=== PATIENT | female | born 1950 | race Caucasian/White ===

== ENCOUNTER 2016-12-27 08:04 | Observation (INO) | payer MEDICARE, OTHER ==
--- NOTE | ~2016-12-27 | OP ---
Record Of Operation [facility] [address] [place]. [address] NAME: COLBY JARVIS : 46 STATUS : DIS IN PAT#: [id number] AGE: 66 ADM/REG DATE : 12/27/16 MR#: [id number] REPORT SERV DATE: 12/29/16 DICTATED BY: JEAN CLAUDE CAPUTO DATE: 12/28/16 REPORT STATUS : Draft TRANSCRIBED BY: MODCruz DATE: 12/28/16 DATE OF PROCEDURE: 12/27/2016 PREOPERATIVE DIAGNOSIS: Surgical absence of the left breast, status post partial mastectomy, breast hypertrophy. PROCEDURE: Oncoplastic reconstruction of the left breast and reduction for matching on the right. 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 She is appropriate for completion of her central segmentectomy incorporating this into a breast reduction and a matching reduction on the right. DETAILS OF THE PROCEDURE: The patient was brought to the operating room after being marked in the preoperative holding area. She was prepped and draped in the usual sterile fashion for the above-described procedure. First, our attention was turned to the right. Infra- central pedicles were de-epithelialized. Excess medial and lateral breast segments were removed. The seroma was thoroughly aspirated and the overlying thin flap containing the nipple-areolar complex was excised. The superior breast flap was then elevated, judiciously depleted of excess breast tissue. She was then irrigated with Hibiclens solution. An inferior drain was placed and the soft tissue envelope was tailored appropriately. She was then inset with multiple layers of 3-0 Monocryl through to an intracuticular in the skin. Our attention was then turned contralaterally for matching. Infra-central pedicle was de- epithelialized. Excess medial lateral breast segments were removed. The superior breast flap was then from the infra-central pedicle and the superior breast flap was in turn depleted of excess breast tissue. The soft tissue envelope was tailored after irrigation with Hibiclens solution, and 15-Romansh drain was placed. She was then closed with multiple layers of 3-0 Monocryl. Site for the right areolar complex was chosen approximately 6 cm from the inframammary crease and 12 cm from the midline. This area was excised. The nipple-areolar complex was introduced and inset with multiple layers of 3-0 Monocryl. She was cleansed with peroxide. A dry dressing circumferential Nino wrap was placed and she was remanded to the recovery room in stable condition. All sponge and needle counts were correct. ISAMAR/COURTNEY Jean Claude Caputo M.D. / [id number] CC: Jean Claude Caputo M.D.
[~2016-12-27 08:04] MED LIST: ATV.5 PO; C1 PO; COUMADIN3 MG PO; INTEGRA PLUS C1 EACH PO; LOVENOX; MIRALAXPKT PO; MULTIVIT/MIN PO; MYRBETRIQ50 MG PO; PRILO PO; REFRESH OPH; TRAZ50 PO
[2016-12-27 09:27] LABS: PARTIAL THROMBO TIME 25.8 SEC (22.5-37.2); PROTIME (NOT ORD) 12.6 SEC (12.0-14.5)
== END 2016-12-28 13:40 | disposition home or self-care (01) ==
LOC: SDC 08:04 → 5SO 16:02
PROVIDERS: Surgery Surgery of the Hand
PROC: 0HBU0ZZ Excision of Left Breast, Open Approach (ICD-10-PCS; principal; 2016-12-27 10:45)
PROC: 0HRU07Z Replacement of Left Breast with Autologous Tissue Substitute, Open Approach (ICD-10-PCS; 2016-12-27 10:45)
DX: N62 Hypertrophy of breast (principal); Z90.12 Acquired absence of left breast and nipple; Z85.3 Personal history of malignant neoplasm of breast
CPT/HCPCS: 85610; 85730; 88305; 96372; 96374; 96375; 96376; A9270-GY; G0378; J1170; J1652; J1885; J2250; J2270; J2405; J3010; J3370